=== PATIENT | male | born 1975 | race Hispanic/Latino ===

== ENCOUNTER 2016-09-25 18:43 | Emergency (ER) | payer MEDICAID ==
[2016-09-25] MEDS ORDERED: Oxycodone/Acetaminophen 5/325 mg Tab PO STA (19:20)
--- NOTE | 2016-09-25 19:21 | C.PDOC ---
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 pt is right handed. no numbness or tingling. last tetanus 5 -6 yrs ago. Time Seen by Provider: 09/25/16 19:05 Chief Complaint (Nursing): Finger,Hand,&Wrist History Per: Patient History/Exam Limitations: no limitations Onset/Duration Of Symptoms: Hrs (1) Current Symptoms Are (Timing): Still Present Quality: Sharp Severity: Moderate Exacerbating Factor(s): Movement Past Medical History Reviewed: Historical Data, Nursing Documentation, Vital Signs Vital Signs: Last Vital Signs Temp 97.8 F 09/25/16 19:14 Pulse 72 09/25/16 20:54 Resp 18 09/25/16 20:54 BP 120/72 09/25/16 20:54 Pulse Ox 98 09/25/16 20:54 - Medical History PMH: HTN Denies: Chronic Kidney Disease Surgical History: No Surg Hx Family History: States: Unknown Family Hx - Social History Hx Tobacco Use: Yes Hx Alcohol Use: Yes Hx Substance Use: No - Immunization History Hx Tetanus Toxoid Vaccination: Yes Hx Influenza Vaccination: Yes Hx Pneumococcal Vaccination: No Review Of Systems Musculoskeletal: Positive for: Hand Pain Skin: Positive for: Other. Negative for: Rash Neurological: Negative for: Weakness, Numbness Physical Exam - Physical Exam Appears: Non-toxic, No Acute Distress Skin: Normal Color, Warm, Dry, Other (abrasion to 3rd right mtp joint) Head: Atraumatic, Normacephalic Extremity: Right: Other (swellng to dorsum of right hand with most tenderness to 3rd and 4th metacarpals, dec rom of fingers due to pain. ) ED Course And Treatment O2 Sat by Pulse Oximetry: 97 Progress Note: splint applied. Orthopedic Time Out: Side verified Procedure: Splint Type: Reverse (sugar tong) Location: Right, Arm, Hand, Wrist Consent obtained: Verbal Diagnosis: Fracture Type: Closed, Displaced Location: Right Bone: Metacarpal Capillary refill: Normal Distal Sensation: Normal Distal Motor Function: Normal Capillary Refill: Normal Compartment: Normal Distal Sensation: Normal Distal Motor Function: Normal Patient tolerated procedure: Well Medical Decision Making Medical Decision Making: xray showing fx of base of 3rd metacarpal; discussed with Dr Patiño, covering hand. pt will be placed in volar splint, and to follow up with Dr Patiño on . Disposition Counseled Patient/Family Regarding: Studies Performed, Diagnosis, Need For Followup, Rx Given - Disposition Referrals: Libby Patiño MD [Staff Provider] - Disposition: HOME/ ROUTINE Disposition Time: 20:34 Condition: STABLE Additional Instructions: Keep splint on until you see Dr Patiño on . Call her office tomorrow at [phone] for an appointment on . Take Tylenol for pain 650 mg by mouth every 4-6 hours. Take one Percocet every 6 hours for severe pain. DO not drive while taking Percocet. Keep splint dry while bathing. Prescriptions: oxyCODONE/Acetaminophen [Percocet 5/325 mg Tab] 1 ea PO QID #6 tab Instructions: Hand Fracture (ED), Splint Care (ED) Forms: General Discharge Instructions - Clinical Impression Clinical Impression: Fracture of third metacarpal bone of right hand
[2016-09-25 19:25] VITALS: TEMP 97.8; BMI 27.1
[2016-09-25] MEDS ORDERED: Oxycodone/Acetaminophen 5/325 mg Tab ONE (19:30)
[2016-09-25 20:56] VITALS: BP 120/72; PULSE 72; RESP 18
[2016-09-26 07:21] VITALS: O2SAT 97
--- NOTE | 2016-09-26 08:36 | RAD ---
PROCEDURE: Right Hand Radiographs. HISTORY: punch computer., pain and swelling to 3rd and 4th COMPARISON: None. FINDINGS: BONES: Acute comminuted and mildly displaced fracture at the base and proximal 3rd metacarpal bone. Small displaced bony fragment seen adjacent to the capitate bone. JOINTS: No radiographic evidence of dislocation. SOFT TISSUES: Normal. OTHER FINDINGS: None. IMPRESSION: Acute comminuted and mildly displaced fracture at the base and proximal 3rd metacarpal bone.
== END 2016-09-25 20:55 | disposition home or self-care (01) ==
LOC: C.ER 18:43
DX: S62.312A Displaced fracture of base of third metacarpal bone, right hand, initial encounter for closed fracture (principal); W22.09XA Striking against other stationary object, initial encounter; Y93.89 Activity, other specified; Y92.008 Other place in unspecified non-institutional (private) residence as the place of occurrence of the external cause

== ENCOUNTER 2016-09-26 14:55 | Emergency (ER) | payer MEDICAID ==
[2016-09-26 14:55] VITALS: BMI 27.1
[2016-09-26 15:17] VITALS: BP 134/78; PULSE 75; RESP 18; TEMP 97.9; O2SAT 97
== END 2016-09-26 15:24 | disposition left against medical advice (07) ==
LOC: C.ER 14:55
DX: S62.91XG Unspecified fracture of right hand, subsequent encounter for fracture with delayed healing (principal); X58.XXXD Exposure to other specified factors, subsequent encounter; Z02.9 Encounter for administrative examinations, unspecified

== ENCOUNTER 2016-09-27 14:38 | Emergency (ER) | payer MEDICAID ==
[2016-09-27 14:38] VITALS: BMI 27.1
[2016-09-27 14:44] VITALS: BP 141/80; PULSE 80; RESP 18; TEMP 97.6; O2SAT 100
--- NOTE | 2016-09-27 15:26 | C.PDOC ---
History Of Present Illness 40 yo male who recently diagnosed with Right hand fracture, noted rIght long hand splint, come in for re-evaluation of Right hand pain, " unable to make follow up with orthopedist". Pt was seen here on 09/25/16 when Dx: Right 3rd MCB fx, angulated, splint, sling applied. Pt admits, called office 2 days ago who refused to see patient " we dont take Medicaid". Pt sts, was unable to make appointment at ortho clinic as well " no one greens picker the phone". At present time, pt reports, was arthur to tony with 10 minuted ago and make appointment with on 10/04/16 at 3:30 pm. Otherwise, pt denies increase pain oer Right hand, denies sensory or vascular deficits to Right fingers. Time Seen by Provider: 09/27/16 15:04 Chief Complaint (Nursing): Upper Extremity Problem/Injury History Per: Patient Past Medical History Reviewed: Historical Data, Nursing Documentation, Vital Signs Vital Signs: Last Vital Signs Temp 97.6 F 09/27/16 14:40 Pulse 80 09/27/16 14:40 Resp 18 09/27/16 14:40 BP 141/80 09/27/16 14:40 Pulse Ox 100 09/27/16 15:26 - Medical History PMH: HTN Denies: Chronic Kidney Disease Family History: States: No Known Family Hx - Social History Hx Tobacco Use: Yes Hx Alcohol Use: Yes Hx Substance Use: No - Immunization History Hx Tetanus Toxoid Vaccination: Yes Hx Influenza Vaccination: Yes Hx Pneumococcal Vaccination: No Review Of Systems Except As Marked, All Systems Reviewed And Found Negative. Musculoskeletal: Positive for: Hand Pain (Right) Neurological: Negative for: Weakness, Numbness Physical Exam - Physical Exam Appears: Well, Non-toxic, No Acute Distress Extremity: Other (Right UE: long arm fiberglass splint noted. Cap refill <2sec to Right fingers, no neurovascular deficits.) Neurological/Psych: Oriented x3, Normal Speech ED Course And Treatment O2 Sat by Pulse Oximetry: 100 Pulse Ox Interpretation: Normal - Other Rad Right hand X-Ray: Read By Radiologist Interpretation: Accession No. : [id number]. Patient Name / ID : KEYANA LOWRY / [id number]. Exam Date : 09/25/2016 19:18:00 ( Approved ). Study Comment : Sex / Age : M / 40Y. Creator : Savi Garner. Dictator : Savi Garner. Water Control Supervisor : Service Planner : Savi Garner. Approver2 : Report Date : 09/26/2016 08:35:12. My Comment : . PROCEDURE: Right Hand Radiographs. HISTORY: punch computer., pain and swelling to 3rd and 4th. COMPARISON: None. FINDINGS: BONES: Acute comminuted and mildly displaced fracture at the base and proximal 3rd metacarpal bone. Small displaced bony fragment seen adjacent to the capitate bone. JOINTS: No radiographic evidence of dislocation. SOFT TISSUES: Normal. OTHER FINDINGS: None. IMPRESSION: Acute comminuted and mildly displaced fracture at the base and proximal 3rd metacarpal bone. Progress Note: On re-eavluation, pt is afebrile, hemodynamicaly stable. non- toxic. RUE: no neurovascular deficits distally to injury. Pt advised to F/U with Dr. Patiño as scheduled for further evaluation and tx. Disposition Counseled Patient/Family Regarding: Diagnosis, Need For Followup - Disposition Referrals: Libby Patiño MD [Staff Provider] - Disposition: HOME/ ROUTINE Disposition Time: 15:10 Condition: STABLE Additional Instructions: Splint Take Tylenol as need for pain FOLLOW UP WITH SCHEDULED ON 10/04/16 AT 15:30 FOR FURTHER EVALUATION AND TREATMENT. RETURN IF ANY NEW CHANGES. Instructions: Hand Fracture (ED) Forms: Work Excuse - Clinical Impression Clinical Impression: Hand fracture, right
== END 2016-09-27 15:35 | disposition home or self-care (01) ==
LOC: C.ER 14:38
DX: S62.91XD Unspecified fracture of right hand, subsequent encounter for fracture with routine healing (principal); X58.XXXD Exposure to other specified factors, subsequent encounter